=== PATIENT | female | born 1985 | race Caucasian/White ===

== ENCOUNTER 2016-08-09 23:45 | Inpatient (IN) | payer BC ==
[2016-08-10] MEDS ORDERED: Lactated Ringers 500 ML IV ONE (00:42)
[2016-08-10] MEDS ORDERED: Ondansetron 4 MG/2 ML SDV IV PRN (00:42)
[2016-08-10] MEDS ORDERED: Methylergonovine 0.2 MG/1 ML Amp IM PRN (00:42)
[2016-08-10] MEDS ORDERED: Sodium Chloride 0.9% 10 ML Syringe FLUSH PRN (00:42)
[2016-08-10] MEDS ORDERED: Carboprost Tromethamine 250 MCG/1 ML Amp IM PRN (00:42)
[2016-08-10] MEDS ORDERED: Acetaminophen 325 MG Tab PO PRN (00:42)
[2016-08-10] MEDS ORDERED: Lidocaine 1% 30 ML SDV INJECT PRN (00:42)
[2016-08-10] MEDS ORDERED: Misoprostol 400 MCG (4 X 100 MCG TAB) RECTAL PRN (00:42)
[2016-08-10] MEDS: Lactated Ringers 1,000 ML IV SCH ×2 (00:43→02:08)
[2016-08-10] MEDS ORDERED: diphenhydrAMINE 25 MG Tab PO ONE (01:35)
--- NOTE | 2016-08-10 10:22 | HP ---
PATIENT IDENTIFICATION: Mary Infante is a 30-year-old, G7, P3-0-3-3, intrauterine at 37-2/7th weeks by 6-2/7th weeks' ultrasound, who presents with contractions. HISTORY OF PRESENT ILLNESS: The patient states contractions started on date of admit, which is 08/09/2016, at approximately between 8 and 9 p.m., felt in to the lower back, coming every 2 to 3 minutes, rated 8/10 on a pain scale, getting worse over time, nothing gets them better. She denies any spotting, bleeding, or leaking associated with this. She notes good movement. She is GBS positive, has had GBS positive status in the past and has been given Vanco for this. There are notes to give Vanco noted. She is allergic to penicillin. Records were called for and reviewed as below and supplemented by patient history. OB HISTORY: 1. 10/23/2014, delivered at 38-6/7th weeks, female, weighing 3456 g. 2. 12/03/2013, spontaneous AB, passed spontaneously. 3. 08/29/2012, 39-week male, delivered via spontaneous vaginal delivery, weighing 3776 g, with late hemorrhage requiring D and C and transfusion. 4. 09/10/2011, spontaneous AB, first trimester, without D and C. 5. 11/19/2010, 38-week female, delivered via vacuum-assisted vaginal delivery, weighing 2970 g. 6. Spontaneous AB, 09/17/2009. ANTEPARTUM LABS: ABO blood type O positive. Negative antibody. Rubella immune. RPR nonreactive. Negative hepatitis B surface antigen. Negative hep C, HIV, GC, and Chlamydia. Wet prep within normal limits. One-hour GTT was 134 on 06/16/2016, with 3-hour being 90, 143, 156, 134 respectively. On 06/16/2016, hemoglobin 10.4, platelets 216. GBS was positive on 08/04/2016. ALLERGIES: Penicillin is listed as an allergy with reaction noted as a child. Pertussis vaccine is also listed as an allergy. PAST MEDICAL/PAST SURGICAL HISTORY: Remarkable for: 1. Low back pain. 2. Seasonal allergies. 3. PCOS. 4. Blood type O positive. 5. History of recurring UTIs. 6. History of late hemorrhage as noted above with D and C and transfusion. 7. History of chickenpox as a child. 8. Body piercing in the past. Surgical history remarkable for: 1. Tonsillectomy. 2. Adenoidectomy. 3. Knee surgery, laparoscopic, torn ligament and cartilage in the left. 4. [place] teeth extraction. 5. Cholecystectomy in 2009. 6. History of salpingogram in 2010. 7. D and C in September of 2012 for late hemorrhage. FAMILY HISTORY: Maternal grandmother with breast cancer. Maternal grandfather with diabetes and heart disease. Paternal grandmother with high cholesterol and hypertension. Sister has lupus and hypothyroid disease. Negative family history of defects, multiple births, cystic fibrosis, seizures, bleeding problems, clotting disorders, or anesthesia problems. SOCIAL HISTORY: They are now expecting their 4th child. , Jose, presents with her today. Originally from [place], [place]. No smoking, alcohol use during the , or drug use. She is sexually active with her male partner. REVIEW OF SYSTEMS: Otherwise reviewed and felt to be noncontributory. OBJECTIVE: Vital Signs: Blood pressure 103/73, heart rate 80, temperature 99.7. Initial evaluation started on 08/09/2016. Appearance: Female, appears her stated age, acting appropriate for age, nontoxic in appearance. Breathing through contractions, but answering questions appropriately in between. HEENT: Head is atraumatic. EOMs intact. PERRLA. No scleral icterus. No obvious otorhinorrhea. Mucous membranes is moist. Neck: No obvious tenderness. Lungs: Clear to auscultation bilaterally. No increased work of breathing. Heart: S1, S2. Regular rate and rhythm. Abdomen: Gravid, Ben's indeterminate, nontender, and nondistended. Bowel sounds are positive. No organomegaly, pulsatile masses, or obvious hernias. No rebound, rigidity, or guarding. : Per nurse; 3 cm, 75% effaced, -1 station, vertex suspected. Extremities: Trace pedal edema. Deep tendon reflexes 2 to 3/4 bilaterally and symmetric in lower extremities. Psych: Mood and affect are congruent. Judgment and insight are intact. Skin: Without cyanosis, clubbing, or jaundice. INVESTIGATIONS: NST, initially upon admit on 08/09/2016, was found to be reactive and reassuring. Currently, we have minimal variability with heart tones in the 120s range. IV will be started. We will start her with IV fluid bolus. We will also start her on vancomycin. ASSESSMENT: 1. Intrauterine at 37-2/7th weeks by 6-/7th weeks' ultrasound. 2. Suspected labor with contractions and cervical change. 3. Group B Streptococcus positive with note to give vancomycin. She has had this in the past, had minimal itching with it but that was because it was given fast. It has been given slow without reaction. 4. Penicillin allergy. 5. History of late hemorrhage with previous delivery. 6. Impaired glucose tolerance with this . 7. 7, para 3-0-3-3. PLAN: The patient will be admitted. Vancomycin will be started. IV fluid bolus will be given. We will follow status closely with recent concerns with variability on the strip. Plans were related to nurse. The patient understands and agrees with the above treatment plan. We will continue to follow clinically and closely. May need further evaluation and intervention based on and maternal status. [facility] /[id number]
--- NOTE | 2016-08-10 11:31 | PN ---
DATE: 08/10/2016 SUBJECTIVE: The patient is now complaining of new onset nausea associated with chest heaviness located throughout the chest without true shortness of breath. I was called to the room in regard to this. EKG was done as well as continuous monitoring. OBJECTIVE: Vital Signs: O2 sats 97%. Vital signs have been stable. Respiratory rate between 12 and 16. Appearance: Female appears stated age, acting appropriate for age, nontoxic in appearance. Breathing through contractions, but answering questions appropriately in between. Mucous membranes are moist. Lungs: Clear to auscultation bilaterally. No increased work of breathing. Heart: S1, S2. Regular rate and rhythm. Abdomen: Soft, gravid with monitors applied. Genitourinary: Normal external female genitalia. Normal position and presentation of urethra. Vaginal exam reveals her to be 3.5 to 4 cm, 75% effaced, -1 to - 2 station, vertex suspected with bag of water felt. Extremities: Trace pedal edema. No calf pain. EKG ordered by myself, interpreted by myself with Internal Medicine's over-read reveals a normal sinus rhythm, rate of 89, axis of 37 degrees, no obvious acute abnormalities noted. ASSESSMENT/PLAN: Intrauterine , now 37 and 3/7th weeks by 6 and 2/7th week ultrasound, admitted with contractions with cervical change in a GBS positive status female requiring vanco due to penicillin allergy in a G7, P3-0-3- 3 with history of impaired glucose tolerance this with new onset chest heaviness. Workup has been done and currently no obvious source or cause is elicited. We will do a urinalysis to review for potential signs and symptoms of infection. The patient has been afebrile. Currently, white cell count was normal when she presented in the 7 range. Platelets have been stable as well. We will continue to follow clinically and closely at this point in time and follow maternal status closely. Plans were discussed with the patient. I did discuss with her if she has new onset symptoms or something does not seem right to notify us immediately, and we will follow closely. [facility] /[id number]
--- NOTE | 2016-08-10 13:35 | OBOUT ---
DATE: 08/09/2016 DATE AND TIME OF NST: Date: 08/09/2016. Time: 2357 hours to 0011 hours. REASON FOR NST: 1. Intrauterine at 37-2/7th weeks by 6-2/7th weeks' ultrasound. 2. Contractions with cervical change-active labor suspected. 3. GBS positive with note requesting vancomycin. 4. Penicillin allergy. 5. History of late hemorrhage with previous delivery. 6. Impaired glucose tolerance. 7. G7, P3-0-3-3. NST INTERPRETATION: During this time period, tone baseline is approximately 120, and there are at least two 15 x 15 beat per minute accelerations, making this strip reactive. Tocometer reveals potential of 4 contractions during this time period. The patient is breathing through them. ASSESSMENT: 1. NST-reactive and reassuring. 2. Tocometer with contractions, the patient breathing through them. PLAN: We will continue to follow clinically and closely. Please see H and P for further details. [facility] /[id number]
--- NOTE | 2016-08-10 13:38 | OBOUT ---
DATE: 08/10/2016 DATE AND TIME OF NST: Date: 08/10/2016. Time: 5:00 to 5:13. NST INTERPRETATION: During this time period, tone baseline is approximately 120 to 130, and there are at least two 15 x 15 beat per minute accelerations, making this strip reactive. It is also noted to be reassuring. Tocometer reveals potential of 3 contractions, felt by patient during this time period. REASON FOR NST: 1. Intrauterine at 37, and now 3/7th weeks by 6-2/7th weeks ultrasound with contractions with cervical change, GBS positive status, on vancomycin with penicillin allergy. 2. New-onset feelings of chest being heavy without pain associated with occasional shivers. ASSESSMENT: 1. NST-reactive and reassuring. 2. Tocometer with contractions. PLAN: Please see other notes for further details. [facility] /[id number]
--- NOTE | 2016-08-10 13:52 | PCM.DCSUM1 ---
Discharge Summary - Hospital Course Free Text/Narrative:: 30-year-old at 37 weeks 2 days gestation presented last night with increased contractions. She has been monitored for over 24 hours and has had little to no cervical change. Her contractions have decreased in frequency and intensity. She did receive IV vancomycin for GBS positive status. - Discharge Data Discharge Date: 08/10/16 Discharge Disposition: Home, Self-Care 01 Condition: Good - Patient Summary/Data Operative Procedure(s) Performed: None Complications: None Consults: None Labs Pending at D/C: None Recommended Follow-up Testing/Procedures: None Planned Operative Procedure(s) after DC: None Hospital Course: Stable. - Patient Instructions Diet: Usual Diet as Tolerated Activity: Rest and Relax Today Driving: May Drive Today Showering/Bathing: May Shower - Discharge Plan Home Medications: Home Meds Ascorbate Calcium [Vitamin C] 500 mg PO DAILY 08/10/16 [History] Ferrous Sulfate 325 mg PO BID 08/10/16 [History] Vit W-Ca,Fe,FA(<1 mg) [ Vitamins] 1 each PO DAILY 08/10/16 [ History] Patient Handouts: Back Pain in , Abdominal Pain During , Easy -to-Read Referrals: Brynn Lee MD [Primary Care Provider] - (Tomorrow as scheduled) - Discharge Summary/Plan Comment DC Time >30 min.: No Discharge Summary/Plan Comment: Explained the patient that she has made little to no cervical change. She is 37 weeks gestation, we cannot give her any medication to increased contractions or [place] to augment labor. I think patient that was early labor can stop or can last a couple of days before it truly sets in. Patient feels that she would prefer to be at home at this time. I feel that this is a reasonable option. Patient will be discharged home. She does have a follow-up OB appointment scheduled with Dr. Frankel tomorrow. I advised her to contact the OB floor or come in for reevaluation if she feels that her contractions have gotten stronger or if her water does break. Patient voices her understanding, and all questions were answered. Kathleen Seaman MD - General Info Date of Service: 08/10/16 Subjective Update: Patient is still feeling nauseated as she was last night but she has been able to drink some clear fluids. She feels that her contractions have decreased in frequency and intensity. She notes that she mostly feels tired from being up overnight. No fevers or chills. Baby has been active. No new headaches or vision changes. - Review of Systems General: Reports: No Symptoms HEENT: Reports: no symptoms Pulmonary: Reports: no symptoms Cardiovascular: Reports: No Symptoms Gastrointestinal: Reports: Nausea. Denies: Vomiting Genitourinary: Reports: no symptoms Musculoskeletal: Reports: no symptoms Skin: Reports: no symptoms - Patient Data Vitals - Most Recent: Last Vital Signs Temp 37.7 C 08/10/16 07:45 Pulse 92 08/10/16 07:45 Resp 16 08/10/16 07:45 BP 93/57 L 08/10/16 07:45 Pulse Ox 96 08/10/16 06:50 Weight - Most Recent: 75.75 kg I&O - Last 24 hours: Intake & Output 08/09/16 08/10/16 08/10/16 22:59 06:59 14:59 Intake Total 1250 Balance 1250 Lab Results - Last 24 hrs: Laboratory Results - last 24 hr 08/10/16 08/10/16 Range/Units 00:50 06:10 WBC 7.7 (5.0-10.0) 10^3/uL RBC 3.31 L (4.2-5.4) 10^6/uL Hgb 9.6 L (12.0-16.0) g/dL Hct 29.2 L (37.0-47.0) % MCV 88.2 (80-100) fL MCH 29.0 (27.0-34.0) pg MCHC 32.9 L (33.0-35.0) g/dL Plt Count 165 (150-450) 10^3/uL Urine Color Yellow (YELLOW) Urine Appearance Clear (CLEAR) Urine pH 7.5 (5.0-9.0) Ur Specific [place] 1.020 (1.005-1.030) Urine Protein Negative (NEGATIVE) Urine Glucose (UA) Negative (NEGATIVE) Urine Ketones 40 H (NEGATIVE) Urine Occult Blood Negative (NEGATIVE) Urine Nitrite Negative (NEGATIVE) Urine Bilirubin Negative (NEGATIVE) Urine Urobilinogen 0.2 (0.2-1.0) mg/dL Ur Leukocyte Esterase Negative (NEGATIVE) Urine RBC 0-5 /HPF Urine WBC Not seen (0-5/HPF) /HPF Ur Epithelial Cells Rare /HPF Urine Bacteria Not seen (0-FEW/HPF) /HPF ANAMIKA Results - Last 24 hrs: Microbiology 08/10/16 10:05 Wet Prep - Final Vagina Med Orders - Current: Current Medications Acetaminophen (Tylenol) 650 mg PO Q4H PRN PRN Reason: Pain (Mild 1-3) and fever Carboprost Tromethamine (Hemabate Ds) 250 mcg IM ASDIRECTED PRN PRN Reason: HEMORRHAGE Vancomycin HCl 1 gm/ Sodium (Chloride) 250 mls @ 167 mls/hr IV Q12H [facility] Last Admin: 08/10/16 00:53 Dose: 167 mls/hr Lactated Ringer's (Ringers, Lactated) 1,000 mls @ 125 mls/hr IV ASDIRECTED [facility] Last Admin: 08/10/16 02:08 Dose: 125 mls/hr Lidocaine HCl (Xylocaine-Mpf 1%) 10 ml INJECT ASDIRECTED PRN PRN Reason: Perineal Repair Methylergonovine Maleate (Methergine) 0.2 mg IM ASDIRECTED PRN PRN Reason: Hemorrhage Misoprostol (Cytotec) 800 mcg RECTAL ASDIRECTED PRN PRN Reason: Hemorrhage Ondansetron HCl (Zofran) 4 mg IV Q4H PRN PRN Reason: Nausea/Vomiting Last Admin: 08/10/16 10:31 Dose: 4 mg Sodium Chloride (Saline Flush) 10 ml FLUSH ASDIRECTED PRN PRN Reason: Keep Vein Open Discontinued Medications Diphenhydramine HCl (Benadryl) 25 mg PO ONETIME ONE Stop: 08/10/16 01:36 Last Admin: 08/10/16 01:45 Dose: 25 mg Lactated Ringer's (Ringers, Lactated) 500 mls @ 500 mls/hr IV .BOLUS ONE Stop: 08/10/16 01:41 Vancomycin HCl 1 gm/ Sodium (Chloride) 250 mls @ 166.7 mls/hr IV Q12HR [facility] - Exam General: Reports: alert, oriented Lungs: Reports: Clear to auscultation, Normal respiratory effort Cardiovascular: Reports: Regular Rate, Regular Rhythm, No Murmurs Extremities: Reports: no edema Skin: Reports: warm, dry, intact *Q Meaningful Use (DIS) - VTE *Q VTE Criteria *Q: - Stroke *Q Stroke Criteria *Q: - AMI *Q AMI Criteria *Q:
[2016-08-10 15:08] VITALS: BP 107/66
--- NOTE | 2016-08-16 01:28 | EKG ---
08/10/2016 - ANN MARIE VICK - This 12-lead EKG shows a normal sinus rhythm with a ventricular rate of 89. Normal axis and intervals. No acute ST-segment or T-wave changes. [facility] /[id number]
== END 2016-08-10 13:20 | disposition home or self-care (01) | DRG 563 ==
LOC: DL.OBCHECK 23:45 → DL.OB 08-10 00:42 → OBSVTOIN 08-10 00:42
PROVIDERS: ADMIT Family Medicine; ATTEND Family Medicine
DX: O60.03 Preterm labor without delivery, third trimester (principal); O99.820 Streptococcus B carrier state complicating pregnancy; O99.810 Abnormal glucose complicating pregnancy; Z3A.37 37 weeks gestation of pregnancy; Z88.0 Allergy status to penicillin
CPT/HCPCS: 36415; 81001; 85027; 87210; 93005; A9270-GY; J2405; J3370; J7050; J7120

== ENCOUNTER 2016-08-20 01:14 | Inpatient (IN) | payer BC ==
[2016-08-20] MEDS ORDERED: Ondansetron 4 MG/2 ML SDV IV ONE (01:33)
[2016-08-20] MEDS ORDERED: Sodium Chloride 0.9% 250 ML ONE (01:39)
[2016-08-20] MEDS ORDERED: Ondansetron 4 MG/2 ML SDV ONE (01:39)
[2016-08-20] MEDS ORDERED: Vancomycin 1 GM AdvVial ONE (01:39)
[2016-08-20] MEDS ORDERED: Methylergonovine 0.2 MG/1 ML Amp IM PRN (02:19)
[2016-08-20] MEDS ORDERED: Lactated Ringers 500 ML IV ONE (02:19)
[2016-08-20] MEDS ORDERED: Carboprost Tromethamine 250 MCG/1 ML Amp IM PRN (02:19)
[2016-08-20] MEDS ORDERED: Sodium Chloride 0.9% 10 ML Syringe FLUSH PRN (02:19)
[2016-08-20] MEDS ORDERED: Misoprostol 400 MCG (4 X 100 MCG TAB) RECTAL PRN (02:19)
[2016-08-20] MEDS ORDERED: Benzocaine/Menthol 20%-0.5% Spray 56 GM Canister TOP PRN (02:28)
[2016-08-20] MEDS ORDERED: Simethicone 80 MG Tab.Chew PO PRN (02:28)
[2016-08-20] MEDS ORDERED: Zolpidem 5 MG Tab PO PRN (02:28)
[2016-08-20] MEDS ORDERED: Lactated Ringers 1,000 ML IV SCH (02:30)
[2016-08-20] MEDS ORDERED: Oxytocin/Normal Saline 30 UNIT/500 ML BAG IV SCH (02:30)
[2016-08-20] MEDS: Acetaminophen 325 MG Tab PO PRN ×4 (02:43→20:47)
[2016-08-20] MEDS: Ibuprofen 800 MG Tab PO PRN ×3 (02:44→22:36)
--- NOTE | 2016-08-20 02:51 | PCM.DEL ---
L & D Note - General Info Date of Service: 08/20/16 (delivery note) Mother's Due Date: 08/29/16 - Delivery Note Labor: spontaneous Delivery Outcome: Livebirth Delivery Method: Spontaneous Vaginal Delivery Infant Delivery Mode: Spontaneous Presentation: Right Occiput Anterior ([place]) Nuchal Cord: None Anesthesia Type: None Amniotic Fluid Description: Clear Episiotomy Type: None Laceration: periurethral Placenta: intact, expressed Cord: 3 vessels Estimated Blood Loss: 100 Resuscitation Needed: No : Suctioned, Bulb Syringe, Stimulated, Warmed, [place] Used, Warmer Used Provider: Brynn Lee Score 1 min: 9 Score 5 min: 10 Second Stage Interventions: Reports: Nurse Consultation Requested Delivery Comments (Free Text/Narrative):: patient pushing involuntarily, patient delivered precipitously in unbroken bed by nursing staff. Physician arrived during delivery of placenta. Periurethral tears noted bilaterally, but no suturing necessary. EBL 100cc. no complications. placenta intact. 3VC hmb - General Info Admission Dx/Problem (Free Text): see admission H&P - Patient Data Weight - most recent: 165 lb Lab Results last 24 hrs: Laboratory Results - last 24 hr 08/20/16 Range/Units 01:28 WBC 8.1 (5.0-10.0) 10^3/uL RBC 3.84 L (4.2-5.4) 10^6/uL Hgb 11.0 L (12.0-16.0) g/dL Hct 32.8 L (37.0-47.0) % MCV 85.4 (80-100) fL MCH 28.6 (27.0-34.0) pg MCHC 33.5 (33.0-35.0) g/dL Plt Count 221 (150-450) 10^3/uL Med Orders - Current: Current Medications Acetaminophen (Tylenol) 650 mg PO Q4H PRN PRN Reason: Pain (Mild 1-3) and fever Last Admin: 08/20/16 02:43 Dose: 650 mg Benzocaine/Menthol (Dermoplast Pain Relief [place]) 0 gm TOP Q4H PRN PRN Reason: Perineal comfort measures Last Admin: 08/20/16 02:45 Dose: 1 applic Carboprost Tromethamine (Hemabate Ds) 250 mcg IM ASDIRECTED PRN PRN Reason: HEMORRHAGE Docusate Sodium (Colace) 100 mg PO BID PRN PRN Reason: Constipation Vancomycin HCl 1 gm/ Sodium (Chloride) 250 mls @ 167 mls/hr IV ONETIME ONE Stop: 08/20/16 03:03 Last Admin: 08/20/16 01:45 Dose: 167 mls/hr Lactated Ringer's (Ringers, Lactated) 500 mls @ 500 mls/hr IV .BOLUS ONE Stop: 08/20/16 03:18 Last Admin: 08/20/16 02:44 Dose: Not Given Lactated Ringer's (Ringers, Lactated) 1,000 mls @ 125 mls/hr IV ASDIRECTED [facility] Last Admin: 08/20/16 01:26 Dose: 125 mls/hr Oxytocin/Sodium Chloride (Pitocin In Ns 30 Unit/500 Ml) 30 unit in 500 mls @ 500 mls/hr IV TITRATE [facility] PRN Reason: Protocol Ibuprofen (Motrin) 800 mg PO Q8H PRN PRN Reason: Mild Pain or Fever Last Admin: 08/20/16 02:44 Dose: 800 mg Methylergonovine Maleate (Methergine) 0.2 mg IM ASDIRECTED PRN PRN Reason: Hemorrhage Misoprostol (Cytotec) 800 mcg RECTAL ASDIRECTED PRN PRN Reason: Hemorrhage Prenat Multivit/[place]/Iron/Folic Ac ( Plus Iron) 1 each PO DAILY [facility] Simethicone (Simethicone) 80 mg PO Q4H PRN PRN Reason: Gas Sodium Chloride (Saline Flush) 10 ml FLUSH ASDIRECTED PRN PRN Reason: Keep Vein Open Zolpidem Tartrate (Ambien) 5 mg PO BEDTIME PRN PRN Reason: Insomnia Stop: 08/20/16 21:01 Discontinued Medications Sodium Chloride (Normal Saline) Confirm Administered Dose 250 mls @ as directed .ROUTE .STK-MED ONE Stop: 08/20/16 01:40 Last Admin: 08/20/16 02:45 Dose: Not Given Ondansetron HCl (Zofran) 4 mg IV ONETIME ONE Stop: 08/20/16 01:34 Last Admin: 08/20/16 02:36 Dose: 4 mg Ondansetron HCl (Zofran) Confirm Administered Dose 4 mg .ROUTE .STK-MED ONE Stop: 08/20/16 01:40 Last Admin: 08/20/16 02:44 Dose: Not Given Vancomycin HCl (Vancocin) Confirm Administered Dose 1 gm .ROUTE .STK-MED ONE Stop: 08/20/16 01:40 Last Admin: 08/20/16 02:44 Dose: Not Given - Exam General: alert, oriented HEENT: Pupils equal, Pupils reactive, EOMI, Mucous membr. moist/pink Neck: supple Lungs: Clear to auscultation, Normal respiratory effort Cardiovascular: Regular Rate, Regular Rhythm Abdomen: bowel sounds present, soft, no tenderness (Female) Exam: Enlarged Uterus (normal ), Vaginal Bleeding (normal ), Vaginal Tears Back Exam: Normal Inspection, Full Range of Motion Extremities: no edema Skin: warm, dry, intact Wound/Incisions: healing well Neurological: no new focal deficit Psy/Mental Status: alert, normal affect, normal mood - Problem List & Annotations (1) Blood type O+ SNOMED Code(s): 118757570 Code(s): Z67.40 - TYPE O BLOOD, RH POSITIVE Status: Acute Current Visit: No (2) GBS (group B Streptococcus carrier), +RV culture, currently SNOMED Code(s): 03788584, 765370147 Code(s): O99.820 - STREPTOCOCCUS B CARRIER STATE COMPLICATING Status: Acute Current Visit: No (3) Mother currently breast-feeding SNOMED Code(s): 936839840 Code(s): XJS1524 - Status: Acute Current Visit: No (4) Rubella immune SNOMED Code(s): 648602176 Code(s): Z78.9 - OTHER SPECIFIED HEALTH STATUS Status: Acute Current Visit: No (5) Spontaneous onset of labor SNOMED Code(s): 51948666 Code(s): VLU4673 - Status: Acute Current Visit: No (6) Spontaneous vaginal delivery SNOMED Code(s): 30528839 Code(s): O80 - ENCOUNTER FOR FULL-TERM UNCOMPLICATED DELIVERY Status: Acute Current Visit: No - Problem List Review Problem List Initiated/Reviewed/Updated: Yes - My Orders Last 24 Hours: My Active Orders 08/20/16 01:34 Vancomycin [Vancocin] 1 gm Sodium Chloride 0.9% [Normal Saline] 250 ml IV ONETIME 08/20/16 02:19 Patient Status [ADT] Routine Communication Order [RC] ASDIRECTED Notify Provider Vital Signs OB [RC] ASDIRECTED Notify Provider [RC] PRN Up ad [place] [RC] ASDIRECTED Vital Signs [RC] PER UNIT ROUTINE Acetaminophen [Tylenol] 650 mg PO Q4H PRN Carboprost Tromethamine [Hemabate DS] 250 mcg IM ASDIRECTED PRN Lactated Ringers [Ringers, Lactated] 500 ml IV .BOLUS Methylergonovine [Methergine] 0.2 mg IM ASDIRECTED PRN Misoprostol [Cytotec] 800 mcg RECTAL ASDIRECTED PRN Sodium Chloride 0.9% [Saline Flush] 10 ml FLUSH ASDIRECTED PRN Saline Lock Insert [OM.PC] Routine Resuscitation Status Routine 08/20/16 02:28 Consult to Sql Ssis Developer [CONS] Routine Benzocaine/Menthol [Dermoplast Pain Relief [place]] See Dose Instructions TOP Q4H PRN Docusate Sodium [Colace] 100 mg PO BID PRN Ibuprofen [Motrin] 800 mg PO Q8H PRN Simethicone 80 mg PO Q4H PRN Zolpidem [Ambien] 5 mg PO BEDTIME PRN 08/20/16 02:29 Assess Lochia [WOMSER] Per Unit Routine Assess Uterine Involution [WOMSER] Per Unit Routine Breast Pump [WOMSER] Per Unit Routine Ice Therapy [OM.PC] Per Unit Routine Perineal Care [OM.PC] Per Unit Routine Sitz Bath [OM.PC] Per Unit Routine 08/20/16 02:30 Lactated Ringers @ 125 MLS/HR(1000ml) Lactated Ringers [Ringers, Lactated] 1, 000 ml IV ASDIRECTED Oxytocin/Normal Saline [Pitocin in NS 30 UNIT/500 ML] 500 ml IV TITRATE 08/20/16 09:00 Vit with Ca/FA/Iron [ Plus Iron] 1 each PO DAILY 08/20/16 Breakfast Regular Diet [DIET] - Plan Plan:: Assessment: 30yo G7 now [id number] 38w5d , precipitous labor and delivery viable male infant delivered on 08-20-16 @ 0156 APGARs 9 & 10 anemia hgb 11 on admit GBS+, Got Vancomycin Rubella immune blood type O+ Plan: Routine cares and orders. 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
--- NOTE | 2016-08-20 03:37 | HP ---
REASON FOR ADMISSION: Onset of labor. HISTORY OF PRESENT ILLNESS: This delightful 30-year-old 7, para 3-0-3- 3, presented at 38 and 5/7-week gestation with spontaneous labor. The patient reports she woke up at 12:50 with the onset of labor, had hard contractions, subsequently made their way to the hospital, was not having any significant vaginal bleeding. The patient had good care, was group B strep positive with history of a penicillin allergy and resistant to clindamycin, therefore we are planning on vancomycin for prophylaxis. O positive blood type. Rubella immune. She is up- to-date for Tdap and flu shot and her other immunizations. She had excellent care. She did have an elevated glucose screen and mildly elevated 3-hour GTT showing glucose intolerance of , however, was unable to meet with the dietitian and therefore did not do home glucose monitoring or she never did show glycosuria or ketonuria. She did not have excessive weight gain. Due date is consistent with ultrasound at 6 and 21 weeks. Please see her notes for details. OBSTETRICAL HISTORY: Includes 3 term vaginal deliveries and 3 spontaneous ABs. Please see her notes for details. PAST MEDICAL HISTORY: Includes polycystic ovarian syndrome, seasonal allergies, recurrent UTIs, prior hemorrhage requiring a D and C and a blood transfusion, a distant chickenpox. PAST SURGICAL HISTORY: Includes tonsillectomy, adenoidectomy, knee surgery, oral surgery, cholecystectomy, D and C, and hysterosalpingogram. FAMILY HISTORY: Positive for diabetes, heart disease, breast cancer, hypertension, thyroid disease, and cholesterol problems. Please see notes for details. SOCIAL HISTORY: . Her , Jose. They live in [place]. 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 She is a nonsmoker. No history of alcohol or drug abuse. REVIEW OF SYSTEMS: Otherwise unremarkable. MEDICATIONS: Include her: 1. vitamins. 2. Iron supplementation. ALLERGIES AND SENSITIVITY: Include penicillin (reaction as the baby). PHYSICAL EXAMINATION: Objective Information; Vital Signs: Height 5 feet 7 inches. Weight 165. Vital signs noted on admission. HEENT: Negative. Lungs: Clear. Heart: Sounds were regular. Abdomen: Gravid. Cervix: Cervix on exam was 7 to 8 cm and was in the vertex presentation. Extremities: Without any significant edema. NST on arrival was reassuring. Contractions were tracing regularly. There were no worrisome decelerations. Tracing met criteria for reactive. LABORATORY DATA: Objective lab work showed a white count 8.1, hemoglobin 11.0, platelet count 221. IMPRESSION: 1. A 30-year-old, 7, para 3, at 38 weeks 5 days, in active labor. 2. Group B Streptococcus positive. 3. Rubella immune. 4. O positive blood type. 5. Mild anemia with admission hemoglobin of 11.0. 6. Nonstress test reactive. PLAN: This patient was admitted with routine admit orders. She is planning on intrathecal and that was ordered for her. A vancomycin was planned and IV will be started and vancomycin was ordered. Other routine admit orders were started. She was set up for vaginal delivery per nursing staff. Please see nursing notes for further information. [facility] /[id number]
[2016-08-20] MEDS: Prenatal Multivitamin with Calcium/Folic Acid/Iron Tab PO SCH (09:21)
[2016-08-20] MEDS: Docusate Sodium 100 MG Cap PO PRN ×2 (09:21→20:47)
[2016-08-21] MEDS: Prenatal Multivitamin with Calcium/Folic Acid/Iron Tab PO SCH ×2 (07:19→15:07)
[2016-08-21] MEDS: Ibuprofen 800 MG Tab PO PRN (07:19)
[2016-08-21] MEDS: Docusate Sodium 100 MG Cap PO PRN (07:20)
[2016-08-21 09:29] VITALS: BP 112/84
--- NOTE | 2016-08-22 04:09 | DISCH ---
HISTORY: This patient is a very pleasant, patient of Dr. Lee and Dr. Lee has discussed her thoroughly with me yesterday. The patient did enter the hospital yesterday and a short time later, did proceed on to have a rather rapid spontaneous vaginal delivery. Her course was quite unremarkable. She was known to be group B strep positive and vancomycin was given. She did proceed on at 38 weeks 5 days gestation to have this rapid spontaneous vaginal delivery. She had a viable baby boy named Clem, who had good scores and weighed 8 pounds 6 ounces. There was no episiotomy and no large lacerations. Please see Dr. Lee's admission history and physical and delivery note in the electronic health record. HOSPITAL COURSE: The patient has continued to do very well today, in fact today is her 31th birthday, she wishes to go home today. She does have some slight intermittent nausea, but declines any Zofran. She will observe this at home and contact us if the nausea were to persist change or worsen. As mentioned above, she does urge discharge today. Her discharge condition is good. Her diet is regular. We also emphasized the importance of healthy well-balanced nutritional measures and adequate hydration and taking her vitamin daily and breast feeding appears to be established well at this time. Other discharge instructions given to her consisted of please calling us at once if any fever, excess pain, excess bleeding, or any problems with her extremities, breasts, abdomen, or any other site on her body. FOLLOWUP APPOINTMENT: Clem Simmons's appointment is Tuesday with Dr. Lee. Mary will see Dr. Lee herself in 6 weeks for a routine visit. DISCHARGE MEDICATIONS: The patient will use either Tylenol or ibuprofen p.r.n. [id number]. She also will use Colace p.r.n. She will take her vitamins also. We also gave her instructions to please do progressive gradual ambulation at home. FINAL DIAGNOSIS: at 38 weeks 5 days gestation, delivered. OPERATIONS AND PROCEDURES: Spontaneous rapid vaginal delivery with no episiotomy and no major lacerations on 08/20/2016. Patient's admission hemoglobin was 11 and with this appropriate value, a hemoglobin was not obtained. [facility] /[id number]
== END 2016-08-21 13:34 | disposition home or self-care (01) | DRG 560 ==
LOC: DL.OB 01:14 → OBSVTOIN 01:56
PROVIDERS: ADMIT Family Medicine; ATTEND Family Medicine
PROC: 10E0XZZ Delivery of Products of Conception, External Approach (ICD-10-PCS; principal; 2016-08-20)
DX: O99.02 Anemia complicating childbirth (principal); O99.820 Streptococcus B carrier state complicating pregnancy; Z3A.39 39 weeks gestation of pregnancy; Z37.0 Single live birth; Z88.0 Allergy status to penicillin; O71.82 Other specified trauma to perineum and vulva; O62.3 Precipitate labor; Z67.40 Type O blood, Rh positive
CPT/HCPCS: 36415; 85027; A9270-GY; J2405; J2590; J3370; J7050; J7120

== ENCOUNTER 2018-10-14 18:50 | Emergency (ER) | payer BC ==
[2018-10-14 18:59] VITALS: BP 112/83
[2018-10-14] MEDS ORDERED: Sodium Chloride 0.9% 1,000 ML IV ONE (19:25)
--- NOTE | 2018-10-14 19:31 | EDM.PDOC ---
ED HPI GENERAL MEDICAL PROBLEM - General Chief Complaint: Fever Stated Complaint: 104 FEVER Time Seen by Provider: 10/14/18 19:20 Source of Information: Reports: Patient History Limitations: Reports: No Limitations - History of Present Illness INITIAL COMMENTS - FREE TEXT/NARRATIVE: This 33 yo female patient reports to the ED with a fever, chills, cough, body aches, diffuse abdominal pain and nausea. The patient reports her symptoms started 3-4 days ago, but got much worse today. The patient reports a temp of 103 at home prior to taking ibuprofen. The patient reports her children have been sick over the past 8 days with a "viral illness" diagnosed in the clinic. The patient has a history of migraine headaches. 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 - Related Data Allergies Allergy/AdvReac Type Severity Reaction Status Date / Time penicillin Allergy Itching Verified 10/14/18 18:57 Home Meds: Home Meds Vit Calc,Iron,Folic [ Vitamins] 1 each PO DAILY 08/10/16 [ History] Amitriptyline [Elavil] 10 mg PO DAILY 10/14/18 [History] ISOtretinoin [Myorisan] 20 mg PO DAILY 10/14/18 [History] Spironolactone 50 mg PO DAILY 10/14/18 [History] Past Medical History Respiratory History: Reports: Asthma Genitourinary History: Reports: UTI, 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: Neurological History: Reports: Migraines Psychiatric History: Reports: None Endocrine/Metabolic History: Reports: Other (See Below) Other Endocrine/Metabolic History: glucose intolerance of Hematologic History: Reports: Anemia Immunologic History: Reports: None Oncologic (Cancer) History: Reports: None - Infectious Disease History Infectious Disease History: Reports: Chicken Pox - Past Surgical History HEENT Surgical History: Reports: Oral Surgery, Tonsillectomy, Other (See Below) Other HEENT Surgeries/Procedures: jaw surgery GI Surgical History: Reports: Cholecystectomy Female Surgical History: Reports: D&C Other Female Surgeries/Procedures: D&C for late PP hemorrhage Musculoskeletal Surgical History: Reports: Arthroscopic Procedure Social & Family History - Family History Family Medical History: Noncontributory - Tobacco Use Smoking Status *Q: Never Smoker Second Hand Smoke Exposure: No - Caffeine Use Caffeine Use: Reports: None ED ROS GENERAL - Review of Systems Review Of Systems: ROS reveals no pertinent complaints other than HPI. ED EXAM, GENERAL - Physical Exam Exam: See Below Exam Limited By: No Limitations General Appearance: Alert, WD/WN, Moderate Distress Eye Exam: Bilateral Eye: EOMI, Normal Inspection, PERRL Ears: Normal External Exam, Normal Canal, Hearing Grossly Normal, Normal TMs Nose: Normal Inspection, Normal Mucosa, No Blood Throat/Mouth: Normal Inspection, Normal Lips, Normal Teeth, Normal Gums, Normal Oropharynx, Normal Voice, No Airway Compromise Head: Atraumatic, Normocephalic Neck: Normal Inspection, Supple, Non-Tender, Full Range of Motion Respiratory/Chest: No Respiratory Distress, Lungs Clear, Normal Breath Sounds, No Accessory Muscle Use, Chest Non-Tender Cardiovascular: Normal Peripheral Pulses, Regular Rate, Rhythm, No Edema, No Gallop, No JVD, No Murmur, No Rub GI/Abdominal: Normal Bowel Sounds, No Organomegaly, No Distention, No Abnormal Bruit, No Mass, Pelvis Stable, Tender (lower abdomen) (Female) Exam: Deferred Rectal (Female) Exam: Deferred Back Exam: Normal Inspection, Full Range of Motion, NT Extremities: Normal Inspection, Normal Range of Motion, Non-Tender, Normal Capillary Refill, No Pedal Edema Neurological: Alert, Oriented, CN II-XII Intact, Normal Cognition, Normal Gait, Normal Reflexes, No Motor/Sensory Deficits Psychiatric: Normal Affect, Normal Mood Skin Exam: Dry, Intact, Normal Color, No Rash, Increased Warmth Lymphatic: No Adenopathy Course - Vital Signs Last Recorded V/S: Last Vital Signs Temp 37.6 C 10/14/18 18:57 Pulse 109 H 10/14/18 18:57 Resp 18 10/14/18 18:57 BP 112/83 10/14/18 18:57 Pulse Ox 94 L 10/14/18 18:57 - Orders/Labs/Meds Orders: Active Orders 24 hr Category Date Time Status Chest 2V [CR] Urgent Exams 10/14/18 20:09 Ordered CULTURE STREP A CONFIRMATION [RM] Stat Lab 10/14/18 19:13 Results CULTURE URINE [RM] Urgent Lab 10/14/18 20:23 Received STREP SCRN A RAPID W CULT CONF [RM] Stat Lab 10/14/18 19:13 Results Labs: Laboratory Tests 10/14/18 10/14/18 10/14/18 Range/Units 19:20 19:20 20:23 WBC 8.2 (5.0-10.0) 10^3/uL RBC 4.64 (4.2-5.4) 10^6/uL Hgb 13.9 D (12.0-16.0) g/dL Hct 40.7 (37.0-47.0) % MCV 87.7 (80-100) fL MCH 30.0 (27.0-34.0) pg MCHC 34.2 (33.0-35.0) g/dL Plt Count 166 (150-450) 10^3/uL Neut % (Auto) 86.2 H (42.2-75.2) % Lymph % (Auto) 7.2 L (20.5-50.1) % [place] % (Auto) 6.3 (2-8) % Eos % (Auto) 0.1 L (1.0-3.0) % Baso % (Auto) 0.2 (0.0-1.0) % Sodium 134 L (135-145) mmol/L Potassium 4.2 (3.6-5.0) mmol/L Chloride 98 L (101-111) mmol/L Carbon Dioxide 27.0 (21.0-31.0) mmol/L Anion Gap 13.2 BUN 8 (7-18) mg/dL Creatinine 0.8 (0.6-1.3) mg/dL Est Cr Clr Drug Dosing 97.01 mL/min Estimated GFR (MDRD) > 60 BUN/Creatinine Ratio 10.00 Glucose 125 H (74-105) mg/dL Calcium 8.5 (8.4-10.2) mg/dl Total Bilirubin 0.9 (0.2-1.0) mg/dL AST 19 (10-42) IU/L ALT 12 (10-60) IU/L Alkaline Phosphatase 51 (42-121) IU/L Total Protein 7.0 (6.7-8.2) g/dl Albumin 4.0 (3.2-5.5) g/dl Globulin 3.0 Albumin/Globulin Ratio 1.33 Urine Color Yellow (YELLOW) Urine Appearance Clear (CLEAR) Urine pH 7.0 (5.0-9.0) Ur Specific [place] 1.010 (1.005-1.030) Urine Protein Negative (NEGATIVE) Urine Glucose (UA) Negative (NEGATIVE) Urine Ketones 15 H (NEGATIVE) Urine Occult Blood Trace-intact H (NEGATIVE) Urine Nitrite Negative (NEGATIVE) Urine Bilirubin Negative (NEGATIVE) Urine Urobilinogen 0.2 (0.2-1.0) mg/dL Ur Leukocyte Esterase Trace H (NEGATIVE) Urine RBC 5-10 H /HPF Urine WBC 20-30 H (0-5/HPF) /HPF Ur Epithelial Cells Moderate H (NOT SEEN) /HPF Urine Bacteria Moderate H (0-FEW/HPF) /HPF Meds: Medications Discontinued Medications Generic Name Dose Route Start Last Admin Trade Name Freq PRN Reason Stop Dose Admin Acetaminophen 650 mg 10/14/18 20:55 Tylenol PO 10/14/18 20:56 NOW ONE Ceftriaxone Sodium 1,000 mg 10/14/18 20:54 Rocephin IVPUSH 10/14/18 20:55 ONETIME ONE Sodium Chloride 1,000 mls @ 999 mls/hr 10/14/18 19:25 10/14/18 19:31 Normal Saline IV 10/14/18 20:25 999 mls/hr .BOLUS ONE Administration Ketorolac Tromethamine 30 mg 10/14/18 20:08 10/14/18 20:14 Toradol IVPUSH 10/14/18 20:09 30 mg ONETIME ONE Administration Metronidazole 500 mg 10/14/18 20:53 Metronidazole PO 10/14/18 20:54 ONETIME ONE - Re-Assessments/Exams Free Text/Narrative Re-Assessment/Exam: 10/14/18 20:11 The patient was advised of the lab results. The patient reports no changes in her symptoms with the liter of IV fluids. An order was placed for IV Toradol and a chest x-ray. Departure - Departure Time of Disposition: 20:56 Disposition: Home, Self-Care 01 Condition: Fair Clinical Impression: Community acquired bilateral lower lobe pneumonia, Bacterial vaginosis - Discharge Information *PRESCRIPTION DRUG MONITORING PROGRAM REVIEWED*: Not Applicable *COPY OF PRESCRIPTION DRUG MONITORING REPORT IN PATIENT MESSI: Not Applicable Instructions: Community-Acquired Pneumonia, Adult, [id number], Bacterial Vaginosis, [id number] Forms: ED Department Discharge Care Plan Goals: The patient was advised of the examination, lab and x-ray results during the visit. The patient was given IV fluids, IV Toradol, IV Rocephin, oral Metronidazole and oral Tylenol while in the ED. The patient was discharged with a script for Azithromycin (250 mg) #6 to take 2 by mouth on day 1 and 1 by mouth on days 2-5 as well as Metronidazole (500 mg) #14 to take 1 by mouth 2 times per day for 7 days. The patient may take [id number] medications for temporary symptom relief. If the patient has any additional symptoms or concerns , the patient should either return to the emergency department or visit her primary care facility. - My Orders Last 24 Hours: My Active Orders 10/14/18 19:13 CULTURE STREP A CONFIRMATION [RM] Stat STREP SCRN A RAPID W CULT CONF [RM] Stat 10/14/18 20:09 Chest 2V [CR] Urgent 10/14/18 20:23 CULTURE URINE [RM] Urgent - Assessment/Plan Last 24 Hours: My Active Orders 10/14/18 19:13 CULTURE STREP A CONFIRMATION [RM] Stat STREP SCRN A RAPID W CULT CONF [RM] Stat 10/14/18 20:09 Chest 2V [CR] Urgent 10/14/18 20:23 CULTURE URINE [RM] Urgent
[2018-10-14 19:57] LABS: ANION GAP 13.2; CHLORIDE,CL 98 mmol/L (101-111); SODIUM,NA 134 mmol/L (135-145)
[2018-10-14] MEDS ORDERED: Ketorolac 30 MG/ML SDV IVPUSH ONE (20:08)
[2018-10-14] MEDS ORDERED: metroNIDAZOLE 250 MG Tab PO ONE (20:53)
[2018-10-14] MEDS ORDERED: cefTRIAXone 500 MG Vial IVPUSH ONE (20:54)
[2018-10-14] MEDS ORDERED: Acetaminophen 325 MG Tab PO ONE (20:55)
== END 2018-10-14 21:20 | disposition home or self-care (01) ==
LOC: DL.ED 18:50
DX: J18.1 Lobar pneumonia, unspecified organism (principal); N76.0 Acute vaginitis; Z79.899 Other long term (current) drug therapy; Z88.0 Allergy status to penicillin
CPT/HCPCS: 36415; 71046; 80053; 81001; 85025; 87081; 87086; 87430; 96361; 96374; 96375; 99283; A9270; J0696; J1885; J7030

== ENCOUNTER 2019-12-11 16:32 | Emergency (ER) | payer BC, OTHER ==
--- NOTE | 2019-12-11 16:34 | EDM.PDOC ---
<Marilee Calvert - Last Filed: 12/11/19 19:03> ED HPI GENERAL MEDICAL PROBLEM - General Chief Complaint: Respiratory Problem Stated Complaint: SHORTNESS OF BREATH Time Seen by Provider: 12/11/19 16:55 Source of Information: Reports: Patient, RN, RN Notes Reviewed History Limitations: Reports: No Limitations - History of Present Illness INITIAL COMMENTS - FREE TEXT/NARRATIVE: Patient presents to the ED via personal vehicle with complaints of persistent dyspnea with exertion. Per patient report, she was diagnosed positive with COVID on 11/30/19 following symptoms of cough, fever, shaking chills, dyspnea at rest, chest pressure, sore throat, and diarrhea. She was treated at the [facility] by Dr. Gillespie with Dexamethasone and a Z-pack. The patient states all of her symptoms have subsided with the exception of diarrhea, dyspnea with exertion, dry cough, and chest tenderness. She has not taken additional medications for these symptoms. 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: Neurological History: Reports: Migraines Psychiatric History: Reports: None Endocrine/Metabolic History: Reports: Other (See Below) Other Endocrine/Metabolic History: glucose intolerance of Hematologic History: Reports: Anemia Immunologic History: Reports: None Oncologic (Cancer) History: Reports: None - Infectious Disease History Infectious Disease History: Reports: Chicken Pox - Past Surgical History HEENT Surgical History: Reports: Oral Surgery, Tonsillectomy, Other (See Below) Other HEENT Surgeries/Procedures: jaw surgery GI Surgical History: Reports: Cholecystectomy Female Surgical History: Reports: D&C Other Female Surgeries/Procedures: D&C for late PP hemorrhage Musculoskeletal Surgical History: Reports: Arthroscopic Procedure Social & Family History - Family History Family Medical History: Noncontributory - Caffeine Use Caffeine Use: Reports: None ED ROS GENERAL - Review of Systems Review Of Systems: Comprehensive ROS is negative, except as noted in HPI. ED EXAM, GENERAL - Physical Exam Exam: See Below Exam Limited By: No Limitations General Appearance: Alert, WD/WN, No Apparent Distress #1 Interpretation EKG Date: 12/11/19 Time: 17:03 Rhythm: NSR Rate (Beats/Min): 70 [place]: Normal P-Wave: Present QRS: Normal ST-T: Normal QT: Normal Comparison: NA - No Prior EKG EKG Interpretation Comments: NSR; No evidence of acute ischemia Departure - Departure Disposition: Home, Self-Care 01 Clinical Impression: COVID-19, History of asthma, Dyspnea UTI (urinary tract infection) Qualifiers: Urinary tract infection type: acute cystitis Hematuria presence: without hematuria Qualified Code(s): N30.00 - Acute cystitis without hematuria - Discharge Information Instructions: COVID-19 Frequently Asked Questions Forms: ED Department Discharge Additional Instructions: humidifier Over counter symtom management, robitussin for cough per package instructions albuterol every 4 hours as needed telephone follow up with primary care this week urgent follow up if symptoms worsen- increasing difficulty breathing, recurrence of fever bactrim DS one twice daily zofran 4mg ODT one every 6 hours as needed for nausea <Radha Greenfield - Last Filed: 12/12/19 04:48> Course - Vital Signs Last Recorded V/S: Last Vital Signs Temp 97.7 F 12/11/19 16:32 Pulse 77 12/11/19 16:32 Resp 16 12/11/19 16:32 BP 101/67 12/11/19 16:32 Pulse Ox 100 12/11/19 16:32 - Orders/Labs/Meds Labs: Laboratory Tests 12/11/19 12/11/19 12/11/19 Range/Units 16:46 16:46 16:46 WBC 6.3 (5.0-10.0) 10^3/uL RBC 4.55 (4.2-5.4) 10^6/uL Hgb 13.4 (12.0-16.0) g/dL Hct 38.9 (37.0-47.0) % MCV 85.5 (80-100) fL MCH 29.5 (27.0-34.0) pg MCHC 34.4 (33.0-35.0) g/dL Plt Count 263 D (150-450) 10^3/uL Neut % (Auto) 62.9 (42.2-75.2) % Lymph % (Auto) 27.3 (20.5-50.1) % [place] % (Auto) 8.9 H (2-8) % Eos % (Auto) 0.6 L (1.0-3.0) % Baso % (Auto) 0.3 (0.0-1.0) % D-Dimer, Quantitative 471 H (0-400) ng/mL Sodium 139 (136-145) mmol/L Potassium 3.9 (3.5-5.1) mmol/L Chloride 104 (98-107) mmol/L Carbon Dioxide 25 (21-32) mmol/L Anion Gap 13.9 H (7-13) mEq/L BUN 13 (7-18) mg/dL Creatinine 0.92 (0.55-1.02) mg/dL Est Cr Clr Drug Dosing 81.42 mL/min Estimated GFR (MDRD) > 60 BUN/Creatinine Ratio 14.1 (No establ ref range) Glucose 93 (74-99) mg/dL Calcium 8.2 L (8.5-10.1) mg/dL Total Bilirubin 0.4 (0.2-1.0) mg/dL AST 14 L (15-37) U/L ALT 12 L (14-59) U/L Alkaline Phosphatase 58 (46-116) U/L Lactate Dehydrogenase 115 (81-234) U/L C-Reactive Protein < 0.2 (0.0-0.9) mg/dL Total Protein 6.7 (6.4-8.2) g/dL Albumin 3.7 (3.4-5.0) g/dL Globulin 3.0 Albumin/Globulin Ratio 1.2 HCG, Qual Urine Color (YELLOW) Urine Appearance (CLEAR) Urine pH (5.0-9.0) Ur Specific [place] (1.005-1.030) Urine Protein (NEGATIVE) Urine Glucose (UA) (NEGATIVE) Urine Ketones (NEGATIVE) Urine Occult Blood (NEGATIVE) Urine Nitrite (NEGATIVE) Urine Bilirubin (NEGATIVE) Urine Urobilinogen (0.2-1.0) mg/dL Ur Leukocyte Esterase (NEGATIVE) Urine RBC /HPF Urine WBC (0-5/HPF) /HPF Ur Epithelial Cells (NOT SEEN) /HPF Amorphous Sediment (NOT SEEN) /HPF Urine Bacteria (0-FEW/HPF) /HPF Urine Mucus (NOT SEEN) /LPF 12/11/19 12/11/19 Range/Units 16:46 18:20 WBC (5.0-10.0) 10^3/uL RBC (4.2-5.4) 10^6/uL Hgb (12.0-16.0) g/dL Hct (37.0-47.0) % MCV (80-100) fL MCH (27.0-34.0) pg MCHC (33.0-35.0) g/dL Plt Count (150-450) 10^3/uL Neut % (Auto) (42.2-75.2) % Lymph % (Auto) (20.5-50.1) % [place] % (Auto) (2-8) % Eos % (Auto) (1.0-3.0) % Baso % (Auto) (0.0-1.0) % D-Dimer, Quantitative (0-400) ng/mL Sodium (136-145) mmol/L Potassium (3.5-5.1) mmol/L Chloride (98-107) mmol/L Carbon Dioxide (21-32) mmol/L Anion Gap (7-13) mEq/L BUN (7-18) mg/dL Creatinine (0.55-1.02) mg/dL Est Cr Clr Drug Dosing mL/min Estimated GFR (MDRD) BUN/Creatinine Ratio (No establ ref range) Glucose (74-99) mg/dL Calcium (8.5-10.1) mg/dL Total Bilirubin (0.2-1.0) mg/dL AST (15-37) U/L ALT (14-59) U/L Alkaline Phosphatase (46-116) U/L Lactate Dehydrogenase (81-234) U/L C-Reactive Protein (0.0-0.9) mg/dL Total Protein (6.4-8.2) g/dL Albumin (3.4-5.0) g/dL Globulin Albumin/Globulin Ratio HCG, Qual Negative Urine Color Yellow (YELLOW) Urine Appearance Slightly cloudy (CLEAR) Urine pH 7.5 (5.0-9.0) Ur Specific [place] 1.015 (1.005-1.030) Urine Protein Negative (NEGATIVE) Urine Glucose (UA) Negative (NEGATIVE) Urine Ketones Negative (NEGATIVE) Urine Occult Blood Negative (NEGATIVE) Urine Nitrite Negative (NEGATIVE) Urine Bilirubin Negative (NEGATIVE) Urine Urobilinogen 0.2 (0.2-1.0) mg/dL Ur Leukocyte Esterase Small H (NEGATIVE) Urine RBC 0-5 /HPF Urine WBC 0-5 (0-5/HPF) /HPF Ur Epithelial Cells Moderate H (NOT SEEN) /HPF Amorphous Sediment Many H (NOT SEEN) /HPF Urine Bacteria Few (0-FEW/HPF) /HPF Urine Mucus Rare (NOT SEEN) /LPF Meds: Medications Discontinued Medications Generic Name Dose Route Start Last Admin Trade Name Tina PRN Reason Stop Dose Admin Iopamidol 100 ml 12/11/19 17:52 12/11/19 18:55 Isovue-370 (76%) IVPUSH 12/11/19 17:53 75 ml ONETIME ONE Administration Ondansetron HCl 4 mg 12/11/19 19:48 12/11/19 19:50 Zofran Odt PO 12/11/19 19:49 4 mg ONETIME ONE Administration Trimethoprim/Sulfamethoxazole 1 tab 12/11/19 19:46 12/11/19 19:48 Septra Ds PO 12/11/19 19:47 1 tab ONETIME ONE Administration - Re-Assessments/Exams Free Text/Narrative Re-Assessment/Exam: 12/12/19 04:47 Instructions to patient. Talking full sentences without distress. Departure - Departure Time of Disposition: 19:19 Condition: Good - Discharge Information *PRESCRIPTION DRUG MONITORING PROGRAM REVIEWED*: No *COPY OF PRESCRIPTION DRUG MONITORING REPORT IN PATIENT MESSI: No
[2019-12-11 16:35] VITALS: BP 101/67; PULSE 77
[2019-12-11 17:16] LABS: ANION GAP 13.9 mEq/L (7-13); CHLORIDE,CL 104 mmol/L (98-107); SODIUM,NA 139 mmol/L (136-145)
[2019-12-11] MEDS ORDERED: Iopamidol 755 Mg/ML 100 ML Bottle IVPUSH ONE (17:52)
--- NOTE | 2019-12-11 19:14 | CT ---
PROCEDURE INFORMATION: Exam: CT Chest With Contrast Exam date and time: 12/11/2019 6:33 PM Age: 34 years old Clinical indication: Shortness of breath; Additional info: Shortness of breath, R/O pe, elevated d-dimer 471, covid positive TECHNIQUE: Imaging protocol: Computed tomography of the chest with intravenous contrast. Radiation optimization: All CT scans at this facility use at least one of these dose optimization techniques: automated exposure control; mA and/or kV adjustment per patient size (includes targeted exams where dose is matched to clinical indication); or iterative reconstruction. Contrast material: [id number]; Contrast volume: 75 ml; Contrast route: INTRAVENOUS (IV); COMPARISON: CR Chest 2V 10/14/2018 8:24 PM FINDINGS: Lungs: Atelectatic changes noted within the lung bases. Pleural space: Unremarkable. No pneumothorax. No pleural effusion. Heart: Unremarkable. No cardiomegaly. No pericardial effusion. Pulmonary arteries: No evidence of pulmonary embolism. Aorta: No evidence of aortic dissection. Lymph nodes: Unremarkable. No enlarged lymph nodes. Bones/joints: The thoracic spine demonstrates mild degenerative changes at multiple levels. Soft tissues: Unremarkable. IMPRESSION: 1. No evidence of pulmonary embolism. 2. No evidence of aortic dissection. 3. Atelectatic changes noted within the lung bases.
[2019-12-11] MEDS ORDERED: Sulfamethoxazole/Trimethoprim 800-160 MG Tab PO ONE (19:46)
[2019-12-11] MEDS ORDERED: Ondansetron 4 MG Tab.DIS PO ONE (19:48)
== END 2019-12-11 20:06 | disposition home or self-care (01) ==
LOC: DL.ED 16:32
DX: U07.1 COVID-19 (principal); J45.909 Unspecified asthma, uncomplicated; N30.00 Acute cystitis without hematuria; Z88.0 Allergy status to penicillin; Z90.49 Acquired absence of other specified parts of digestive tract; Z79.899 Other long term (current) drug therapy
CPT/HCPCS: 36415; 71260; 80053; 81001; 83615; 84703; 85025; 85379; 86140; 93005; 99285; A9270; Q9967